=== PATIENT | male | born 1990 | race African-American/Black ===

== ENCOUNTER 2022-01-02 05:00 | Emergency (ER) | payer OTHER ==
[~2022-01-02] VITALS: Ht 170.2 cm; Wt 89.8 kg
[2022-01-02] MEDS ORDERED: CEPH500C PO (07:20)
[2022-01-02 07:30] VITALS: BP 150/95
== END 2022-01-02 07:38 | disposition home or self-care (01) ==
LOC: ER 05:00
DX: S41.101A Unspecified open wound of right upper arm, initial encounter (principal); Z79.899 Other long term (current) drug therapy; W34.00XA Accidental discharge from unspecified firearms or gun, initial encounter; Y93.89 Activity, other specified; Y92.89 Other specified places as the place of occurrence of the external cause; Y99.8 Other external cause status